=== PATIENT | male | born 1955 | race Caucasian/White ===

== ENCOUNTER 2020-08-23 07:12 | Observation (INO) ==
[2020-08-23 07:39] LABS: Basophils # 0.1 10*3/uL (0.0-0.2); Basophils % 1.1 % (0.0-0.8); Eosinophils # 0.3 10*3/uL (0.0-0.87); Eosinophils % 2.9 % (0.00-10.9); Hematocrit 42.1 VOL% (42.0-52.0); Hemoglobin 13.6 GM/DL (14.0-18.0); Immature Granulocytes % 0.4 %; Immature Granulocytes Absolute 0.04 #; Mean Corpuscular HGB Conc 32.3 GM/DL (32-36); Mean Corpuscular Volume 90.1 FL (87-102); Mean Platelet Volume 9.9 FL (9.6-12.0); Neutrophils % 62.6 % (38.7-73.9); Platelet Count 271 T/CUMM (130-400); Red Blood Count 4.67 MC/CUMM (3.8-5.5); Red Cell Distribution Width 13.6 % (9.3-17.3); White Blood Count 8.9 T/CUMM (4-12)
[2020-08-23] MEDS ORDERED: FUROSEMIDE 40 MG/4 ML VIAL IV STA (07:39)
[2020-08-23] MEDS ORDERED: FUROSEMIDE 100 MG/10 ML VIAL ONE (07:40)
[2020-08-23 08:03] LABS: Albumin 3.2 G/DL (3.4-5.0); Bilirubin,Total 0.5 MG/DL (0.2-1.0); Calcium 8.9 MG/DL (8.5-10.1); Osmolality,Calculated 285.3 MOS/KG (273-304); Total Protein 6.9 G/DL (6.4-8.3)
[2020-08-23] MEDS ORDERED: diphenhydrAMINE 50 MG/1 ML VIAL ONE (08:54)
[2020-08-23] MEDS ORDERED: methylPREDNISolone SOD SUC 125 MG/2 ML VIAL ONE (08:54)
[2020-08-23] MEDS ORDERED: ACETAMINOPHEN 325 MG TABLET PO PRN (10:07)
[2020-08-23] MEDS ORDERED: ONDANSETRON 4 MG/2 ML VIAL IV PRN (10:07)
[2020-08-23] MEDS ORDERED: GLUCAGON 1 MG VIAL IM PRN (10:07)
[2020-08-23] MEDS ORDERED: DEXTROSE 50% 25 GM/50 ML VIAL IV PRN (10:07)
[2020-08-23] MEDS ORDERED: diphenhydrAMINE 50 MG/1 ML VIAL IV STA (10:17)
[2020-08-23] MEDS ORDERED: methylPREDNISolone SOD SUC 125 MG/2 ML VIAL IV STA (10:17)
[2020-08-23] MEDS ORDERED: SODIUM CHLORIDE 0.9% 1,000 ML IV SCH (10:30)
[2020-08-23] MEDS: INSULIN LISPRO 100 UNIT/ML SUBCUT SCH ×3 (11:30→21:21)
[2020-08-23] MEDS ORDERED: AZITHROMYCIN INJ 500 MG in SODIUM CHLORIDE 0.9% 250 ML IV SCH (17:30)
[2020-08-23] MEDS: ENOXAPARIN 100 MG/ML SYRINGE SUBCUT SCH (18:37)
[2020-08-23] MEDS: methylPREDNISolone SOD SUC 40 MG/1 ML VIAL IV SCH (18:38)
[2020-08-23] MEDS: ceFAZolin 1,000 MG in SYRINGE 1 EACH IV SCH (21:22)
[2020-08-23] MEDS: DOCUSATE SODIUM 100 MG CAPSULE PO SCH (21:25)
[2020-08-24] MEDS: ceFAZolin 1,000 MG in SYRINGE 1 EACH IV SCH ×3 (04:37→20:38)
[2020-08-24] MEDS: methylPREDNISolone SOD SUC 40 MG/1 ML VIAL IV SCH ×2 (04:43→17:12)
[2020-08-24] MEDS: ENOXAPARIN 100 MG/ML SYRINGE SUBCUT SCH ×2 (04:45→17:12)
[2020-08-24] MEDS: INSULIN LISPRO 100 UNIT/ML SUBCUT SCH ×4 (08:39→20:39)
[2020-08-24] MEDS: PANTOPRAZOLE 40 MG TABLET PO SCH (08:39)
[2020-08-24] MEDS: CHOLECALCIFEROL 5,000 UNIT TABLET PO SCH (08:39)
[2020-08-24] MEDS: FAMOTIDINE 20 MG TABLET PO SCH (08:39)
[2020-08-24] MEDS: ASCORBIC ACID 500 MG TABLET PO SCH (08:39)
[2020-08-24] MEDS: LORATADINE 10 MG TABLET PO SCH (08:39)
[2020-08-24] MEDS: DOCUSATE SODIUM 100 MG CAPSULE PO SCH ×2 (08:40→20:39)
[2020-08-24] MEDS: INSULIN GLARGINE 100 UNIT/ML SUBCUT SCH (08:41)
[2020-08-24] MEDS: FUROSEMIDE 20 MG/2 ML VIAL IV SCH (08:41)
[2020-08-24 12:46] LABS: Troponin I < 0.015 NG/ML (0.00-0.045)
[2020-08-25] MEDS: ceFAZolin 1,000 MG in SYRINGE 1 EACH IV SCH ×2 (04:40→13:51)
[2020-08-25] MEDS: methylPREDNISolone SOD SUC 40 MG/1 ML VIAL IV SCH ×2 (04:45→18:47)
[2020-08-25 07:01] LABS: Basophils % 0.2 % (0.0-0.8); Hematocrit 41.5 VOL% (42.0-52.0); Immature Granulocytes % 0.5 %; Immature Granulocytes Absolute 0.06 #; Lymphocytes # 1.2 10*3/uL (1.4-4.0); Lymphocytes % 10.2 % (21.2-54.2); Mean Corpuscular HGB Conc 31.3 GM/DL (32-36); Mean Corpuscular Volume 92.6 FL (87-102); Mean Platelet Volume 10.3 FL (9.6-12.0); Monocytes % 7.4 % (1.7-12.7); Neutrophils % 81.7 % (38.7-73.9); Platelet Count 241 T/CUMM (130-400); Red Blood Count 4.48 MC/CUMM (3.8-5.5); Red Cell Distribution Width 13.7 % (9.3-17.3); White Blood Count 11.4 T/CUMM (4-12)
[2020-08-25 07:47] LABS: Calcium 8.2 MG/DL (8.5-10.1); Osmolality,Calculated 288.3 MOS/KG (273-304)
[2020-08-25] MEDS: INSULIN LISPRO 100 UNIT/ML SUBCUT SCH ×3 (09:00→18:47)
[2020-08-25] MEDS: INSULIN GLARGINE 100 UNIT/ML SUBCUT SCH (09:00)
[2020-08-25] MEDS: ASCORBIC ACID 500 MG TABLET PO SCH (09:01)
[2020-08-25] MEDS: CHOLECALCIFEROL 5,000 UNIT TABLET PO SCH (09:01)
[2020-08-25] MEDS: PANTOPRAZOLE 40 MG TABLET PO SCH (09:01)
[2020-08-25] MEDS: FAMOTIDINE 20 MG TABLET PO SCH (09:01)
[2020-08-25] MEDS: DOCUSATE SODIUM 100 MG CAPSULE PO SCH (09:01)
[2020-08-25] MEDS: LORATADINE 10 MG TABLET PO SCH (09:01)
[2020-08-25] MEDS: FUROSEMIDE 20 MG/2 ML VIAL IV SCH (09:02)
[2020-08-25 12:12] LABS: Risk Ratio 1.94; VLDL CHOLESTEROL 21.2 MG/DL
[2020-08-25] MEDS ORDERED: ENOXAPARIN 40 MG/0.4 ML SYRINGE SUBCUT SCH (17:00)
[2020-08-25 20:05] VITALS: BP 139/68
== END 2020-08-25 18:10 | disposition home or self-care (01) ==
LOC: N.ED 07:12 → N.EDINP 10:07 → INTOOBSV 10:07 → N.EDINP 14:19 → N.3E 14:22
PROVIDERS: ADMIT Family Medicine; ATTEND Family Medicine

== ENCOUNTER 2020-11-23 16:19 | Inpatient (IN) ==
[2020-11-23] MEDS ORDERED: VANCOMYCIN INJ 1,500 MG in SODIUM CHLORIDE 0.9% 250 ML IV STA (17:18)
[2020-11-23 17:33] LABS: Basophils # 0.1 10*3/uL (0.0-0.2); Basophils % 0.8 % (0.0-0.8); Eosinophils # 0.3 10*3/uL (0.0-0.87); Eosinophils % 2.7 % (0.00-10.9); Hemoglobin 13.1 GM/DL (14.0-18.0); Immature Granulocytes % 0.4 %; Immature Granulocytes Absolute 0.04 #; Lymphocytes # 2.4 10*3/uL (1.4-4.0); Lymphocytes % 26.3 % (21.2-54.2); Mean Corpuscular HGB Conc 32.8 GM/DL (32-36); Mean Corpuscular Volume 85.5 FL (87-102); Mean Platelet Volume 9.1 FL (9.6-12.0); Monocytes % 13.5 % (1.7-12.7); Neutrophils % 56.3 % (38.7-73.9); Platelet Count 306 T/CUMM (130-400); Red Blood Count 4.68 MC/CUMM (3.8-5.5); Red Cell Distribution Width 13.4 % (9.3-17.3); White Blood Count 9.1 T/CUMM (4-12)
[2020-11-23 17:52] LABS: Alanine Aminotransferase 22 U/L (16-61); Albumin 2.5 G/DL (3.4-5.0); Alkaline Phosphatase 117 U/L (45-117); Aspartate Amino Transferase 18 U/L (0-37); Blood Urea Nitrogen 17 MG/DL (7-18); Calcium 8.9 MG/DL (8.5-10.1); Carbon Dioxide 32 MMOL/L (21-32); Estimated Glom Filtration Rate 80 ML/MIN; Glucose 119 MG/DL (74-106); Osmolality,Calculated 279.5 MOS/KG (273-304); Potassium 3.9 MMOL/L (3.5-5.1); Sodium 139 MMOL/L (136-145); Total Protein 7.4 G/DL (6.4-8.2)
[2020-11-23] MEDS ORDERED: VANCOMYCIN INJ 1,500 MG in SODIUM CHLORIDE 0.9% 500 ML IV STA (17:56)
[2020-11-23] MEDS ORDERED: PIPERACILLIN/TAZOBACTAM 3,375 MG in SODIUM CHLORIDE 0.9% 100 ML IV STA (18:38)
[2020-11-23] MEDS ORDERED: DEXTROSE 50% 25 GM/50 ML VIAL IV PRN (20:58)
[2020-11-23] MEDS ORDERED: GLUCAGON 1 MG VIAL IM PRN (20:58)
[2020-11-23] MEDS ORDERED: ONDANSETRON 4 MG/2 ML VIAL IV PRN (20:58)
[2020-11-23] MEDS ORDERED: HYDROmorphone 2 MG/1 ML VIAL IV PRN (20:58)
[2020-11-23] MEDS ORDERED: APIXABAN 2.5 MG TABLET PO SCH (21:00)
[2020-11-23] MEDS: DOCUSATE SODIUM 100 MG CAPSULE PO SCH (22:38)
[2020-11-23] MEDS: PIPERACILLIN/TAZOBACTAM 3,375 MG in SODIUM CHLORIDE 0.9% 100 ML IV SCH (22:38)
[2020-11-23] MEDS: SODIUM CHLORIDE 0.9% 1,000 ML IV SCH (22:39)
[2020-11-24] MEDS: INSULIN REGULAR 100 UNIT/ML SUBCUT SCH ×5 (01:10→23:48)
[2020-11-24] MEDS: PIPERACILLIN/TAZOBACTAM 3,375 MG in SODIUM CHLORIDE 0.9% 100 ML IV SCH ×4 (04:41→21:36)
[2020-11-24 05:28] LABS: Basophils # 0.1 10*3/uL (0.0-0.2); Basophils % 1.2 % (0.0-0.8); Eosinophils # 0.3 10*3/uL (0.0-0.87); Eosinophils % 3.9 % (0.00-10.9); Hematocrit 35.1 VOL% (42.0-52.0); Hemoglobin 11.6 GM/DL (14.0-18.0); Immature Granulocytes % 0.4 %; Immature Granulocytes Absolute 0.03 #; Lymphocytes % 28.3 % (21.2-54.2); Mean Corpuscular Volume 84.8 FL (87-102); Mean Platelet Volume 9.6 FL (9.6-12.0); Monocytes % 15.7 % (1.7-12.7); Neutrophils % 50.5 % (38.7-73.9); Platelet Count 289 T/CUMM (130-400); Red Blood Count 4.14 MC/CUMM (3.8-5.5); Red Cell Distribution Width 13.5 % (9.3-17.3)
[2020-11-24 05:36] LABS: Bilirubin,Total 0.9 MG/DL (0.2-1.0); Calcium 8.1 MG/DL (8.5-10.1); Osmolality,Calculated 276.7 MOS/KG (273-304); Potassium 3.4 MMOL/L (3.5-5.1); Total Protein 6.2 G/DL (6.4-8.2)
[2020-11-24 05:57] LABS: Eosinophils 3 % (0-10); Hypochromasia 1+; Lymphocytes 23 % (20-55); Microcytosis 1+; Platelet Estimate Adequate; Segmented Neutrophils 58 % (50-85); Total Cells Counted 100
[2020-11-24] MEDS: VANCOMYCIN INJ 1,500 MG in SODIUM CHLORIDE 0.9% 500 ML IV SCH ×3 (06:35→17:07)
[2020-11-24] MEDS ORDERED: POTASSIUM CHLORIDE RIDER 10 MEQ in PREMIX 1 EACH IV ONE (07:11)
[2020-11-24] MEDS: SODIUM CHLORIDE 0.9% 1,000 ML IV SCH ×4 (07:16→16:55)
[2020-11-24] MEDS: MULTIVITAMIN (CENTRUM) TABLET PO SCH (08:53)
[2020-11-24] MEDS: FUROSEMIDE 20 MG TABLET PO SCH (08:53)
[2020-11-24] MEDS: PANTOPRAZOLE 40 MG TABLET PO SCH (08:53)
[2020-11-24] MEDS: LORATADINE 10 MG TABLET PO SCH (08:53)
[2020-11-24] MEDS: DOCUSATE SODIUM 100 MG CAPSULE PO SCH ×2 (08:53→21:36)
[2020-11-24] MEDS: INSULIN GLARGINE 100 UNIT/ML SUBCUT SCH (08:54)
[2020-11-24] MEDS: ACETAMINOPHEN 325 MG TABLET PO PRN (21:36)
[2020-11-25] MEDS: PIPERACILLIN/TAZOBACTAM 3,375 MG in SODIUM CHLORIDE 0.9% 100 ML IV SCH ×3 (04:44→20:39)
[2020-11-25] MEDS: INSULIN REGULAR 100 UNIT/ML SUBCUT SCH ×3 (07:02→17:36)
[2020-11-25] MEDS: SODIUM CHLORIDE 0.9% 1,000 ML IV SCH ×2 (07:23→13:42)
[2020-11-25] MEDS: VANCOMYCIN INJ 1,500 MG in SODIUM CHLORIDE 0.9% 500 ML IV SCH ×2 (08:59→20:36)
[2020-11-25] MEDS: INSULIN GLARGINE 100 UNIT/ML SUBCUT SCH (10:16)
[2020-11-25] MEDS: FUROSEMIDE 20 MG TABLET PO SCH (10:16)
[2020-11-25] MEDS: MULTIVITAMIN (CENTRUM) TABLET PO SCH (10:16)
[2020-11-25] MEDS: DOCUSATE SODIUM 100 MG CAPSULE PO SCH ×2 (10:16→20:36)
[2020-11-25] MEDS: PANTOPRAZOLE 40 MG TABLET PO SCH (10:16)
[2020-11-25] MEDS: LORATADINE 10 MG TABLET PO SCH (10:16)
[2020-11-25] MEDS ORDERED: BUPIVACAINE MPF 0.25% 30 ML VIAL ONE (10:44)
[2020-11-25] MEDS ORDERED: LIDOCAINE 1% 20 ML VIAL ONE (10:44)
[2020-11-25] MEDS ORDERED: fentaNYL 100 MCG/2 ML VIAL ONE (11:15)
[2020-11-25] MEDS ORDERED: MIDAZOLAM 2 MG/2 ML VIAL ONE (11:15)
[2020-11-25] MEDS: ACETAMINOPHEN 325 MG TABLET PO PRN (17:27)
[2020-11-25] MEDS: LOSARTAN 25 MG TABLET PO SCH (20:36)
[2020-11-26] MEDS: INSULIN REGULAR 100 UNIT/ML SUBCUT SCH ×5 (00:35→23:12)
[2020-11-26] MEDS: PIPERACILLIN/TAZOBACTAM 3,375 MG in SODIUM CHLORIDE 0.9% 100 ML IV SCH ×3 (04:27→21:11)
[2020-11-26] MEDS: INSULIN GLARGINE 100 UNIT/ML SUBCUT SCH (08:26)
[2020-11-26] MEDS: DOCUSATE SODIUM 100 MG CAPSULE PO SCH ×2 (08:27→20:16)
[2020-11-26] MEDS: LOSARTAN 25 MG TABLET PO SCH (08:27)
[2020-11-26] MEDS: LORATADINE 10 MG TABLET PO SCH (08:27)
[2020-11-26] MEDS: MULTIVITAMIN (CENTRUM) TABLET PO SCH (08:27)
[2020-11-26] MEDS: PANTOPRAZOLE 40 MG TABLET PO SCH (08:27)
[2020-11-26] MEDS: FUROSEMIDE 20 MG TABLET PO SCH (08:27)
[2020-11-26] MEDS: VANCOMYCIN INJ 1,500 MG in SODIUM CHLORIDE 0.9% 500 ML IV SCH ×2 (08:28→21:16)
[2020-11-26] MEDS: ENOXAPARIN 30 MG/0.3 ML SYRINGE SUBCUT SCH (10:41)
[2020-11-26] MEDS: ACETAMINOPHEN 325 MG TABLET PO PRN ×2 (15:09→21:09)
[2020-11-26] MEDS ORDERED: DIPHTHERIA/TETANUS ADULT VACCINE 0.5 ML SYRINGE IM ONE (17:00)
[2020-11-27] MEDS ORDERED: VANCOMYCIN INJ 1,500 MG in SODIUM CHLORIDE 0.9% 500 ML IV SCH (04:30)
[2020-11-27] MEDS: SODIUM CHLORIDE 0.9% 1,000 ML IV SCH (05:32)
[2020-11-27] MEDS: PIPERACILLIN/TAZOBACTAM 3,375 MG in SODIUM CHLORIDE 0.9% 100 ML IV SCH (05:33)
[2020-11-27] MEDS: INSULIN REGULAR 100 UNIT/ML SUBCUT SCH ×3 (05:41→17:23)
[2020-11-27 06:00] LABS: Basophils # 0.1 10*3/uL (0.0-0.2); Eosinophils # 0.3 10*3/uL (0.0-0.87); Eosinophils % 3.8 % (0.00-10.9); Hematocrit 37.4 VOL% (42.0-52.0); Hemoglobin 12.4 GM/DL (14.0-18.0); Immature Granulocytes % 0.5 %; Immature Granulocytes Absolute 0.04 #; Lymphocytes # 2.3 10*3/uL (1.4-4.0); Lymphocytes % 31.8 % (21.2-54.2); Mean Corpuscular HGB Conc 33.2 GM/DL (32-36); Mean Corpuscular Volume 85.8 FL (87-102); Mean Platelet Volume 9.7 FL (9.6-12.0); Monocytes % 11.5 % (1.7-12.7); Neutrophils % 51.4 % (38.7-73.9); Platelet Count 289 T/CUMM (130-400); Red Blood Count 4.36 MC/CUMM (3.8-5.5); Red Cell Distribution Width 13.5 % (9.3-17.3); White Blood Count 7.3 T/CUMM (4-12)
[2020-11-27 06:30] LABS: Calcium 8.4 MG/DL (8.5-10.1); Osmolality,Calculated 279.3 MOS/KG (273-304)
[2020-11-27] MEDS: ENOXAPARIN 30 MG/0.3 ML SYRINGE SUBCUT SCH (09:08)
[2020-11-27] MEDS: INSULIN GLARGINE 100 UNIT/ML SUBCUT SCH (09:09)
[2020-11-27] MEDS: PANTOPRAZOLE 40 MG TABLET PO SCH (09:09)
[2020-11-27] MEDS: MULTIVITAMIN (CENTRUM) TABLET PO SCH (09:09)
[2020-11-27] MEDS: DOCUSATE SODIUM 100 MG CAPSULE PO SCH ×2 (09:09→21:28)
[2020-11-27] MEDS: LOSARTAN 25 MG TABLET PO SCH (09:09)
[2020-11-27] MEDS: FUROSEMIDE 20 MG TABLET PO SCH (09:10)
[2020-11-27] MEDS: LORATADINE 10 MG TABLET PO SCH (09:10)
[2020-11-27] MEDS: CIPROFLOXACIN 500 MG TABLET PO SCH ×2 (12:45→21:20)
[2020-11-28] MEDS: INSULIN REGULAR 100 UNIT/ML SUBCUT SCH ×3 (01:39→11:40)
[2020-11-28] MEDS: PANTOPRAZOLE 40 MG TABLET PO SCH (08:30)
[2020-11-28] MEDS: LORATADINE 10 MG TABLET PO SCH (08:30)
[2020-11-28] MEDS: MULTIVITAMIN (CENTRUM) TABLET PO SCH (08:30)
[2020-11-28] MEDS: DOCUSATE SODIUM 100 MG CAPSULE PO SCH (08:30)
[2020-11-28] MEDS: LOSARTAN 25 MG TABLET PO SCH (08:30)
[2020-11-28] MEDS: CIPROFLOXACIN 500 MG TABLET PO SCH (08:30)
[2020-11-28] MEDS: FUROSEMIDE 20 MG TABLET PO SCH (08:30)
[2020-11-28] MEDS: ENOXAPARIN 30 MG/0.3 ML SYRINGE SUBCUT SCH (08:31)
[2020-11-28] MEDS: INSULIN GLARGINE 100 UNIT/ML SUBCUT SCH (08:31)
[2020-11-28 13:00] VITALS: BP 152/71
[2020-11-28] MEDS: ACETAMINOPHEN 325 MG TABLET PO PRN (15:14)
== END 2020-11-28 17:55 | disposition home or self-care (01) | DRG 264 ==
LOC: N.EDINP 16:19 → N.ED 16:19 → N.5E 20:18
PROVIDERS: ADMIT Family Medicine; ATTEND Family Medicine

== ENCOUNTER 2022-08-22 07:59 | Inpatient (IN) ==
[~2022-08-22 07:59] MED LIST: LACTATED RINGERS 1,000 ML IV SCH; VANCOMYCIN INJ 1,000 MG in SODIUM CHLORIDE 0.9% 250 ML IV ONE
[2022-08-22 08:23] LABS: Basophils # 0.1 10*3/uL (0.0-0.2); Basophils % 1.1 % (0.0-0.8); Eosinophils # 0.1 10*3/uL (0.0-0.87); Eosinophils % 0.7 % (0.00-10.9); Hematocrit 35.4 VOL% (42.0-52.0); Hemoglobin 10.8 GM/DL (14.0-18.0); Immature Granulocytes % 0.5 %; Immature Granulocytes Absolute 0.04 #; Lymphocytes # 0.9 10*3/uL (1.4-4.0); Lymphocytes % 12.2 % (21.2-54.2); Mean Corpuscular HGB Conc 30.5 GM/DL (32-36); Mean Corpuscular Volume 83.1 FL (87-102); Mean Platelet Volume 8.7 FL (9.6-12.0); Monocytes # 0.8 10*3/uL (0.11-0.8); Monocytes % 10.2 % (1.7-12.7); Neutrophils % 75.3 % (38.7-73.9); Platelet Count 430 T/CUMM (130-400); Red Blood Count 4.26 MC/CUMM (3.8-5.5); Red Cell Distribution Width 15.8 % (9.3-17.3); White Blood Count 7.6 T/CUMM (4-12)
[2022-08-22 08:39] LABS: Calcium 8.8 MG/DL (8.5-10.1); Osmolality,Calculated 275.1 MOS/KG (273-304); Potassium 3.3 MMOL/L (3.5-5.1)
[2022-08-22] MEDS ORDERED: DIAZEPAM 5 MG TABLET PO ONE (08:53)
[2022-08-22] MEDS ORDERED: GABAPENTIN 400 MG CAPSULE PO ONE (08:53)
[2022-08-22] MEDS ORDERED: ACETAMINOPHEN 500 MG TABLET PO ONE (08:53)
[2022-08-22] MEDS ORDERED: FAMOTIDINE 20 MG TABLET PO ONE (08:53)
[2022-08-22] MEDS ORDERED: BUPIVACAINE MPF 0.25% 10 ML VIAL ONE (08:54)
[2022-08-22] MEDS ORDERED: LIDOCAINE 1% 5 ML VIAL ONE (08:54)
[2022-08-22] MEDS ORDERED: ACETAMINOPHEN 500 MG TABLET ONE (08:57)
[2022-08-22] MEDS ORDERED: FAMOTIDINE 20 MG TABLET ONE (08:57)
[2022-08-22] MEDS ORDERED: propofoL 200 MG/20 ML VIAL IV ONE (09:11)
[2022-08-22] MEDS ORDERED: LIDOCAINE 2% 5 ML VIAL ONE (09:11)
[2022-08-22] MEDS ORDERED: MIDAZOLAM 2 MG/2 ML VIAL ONE (09:12)
[2022-08-22] MEDS ORDERED: fentaNYL 100 MCG/2 ML VIAL ONE (09:12)
[2022-08-22] MEDS ORDERED: KETAMINE 500 MG/10 ML VIAL ONE (09:58)
[2022-08-22] MEDS ORDERED: DEXTROSE 10% 250 ML BAG IV PRN (10:51)
[2022-08-22] MEDS ORDERED: MORPHINE 2 MG/1 ML SYRINGE IV PRN (10:51)
[2022-08-22] MEDS ORDERED: GLUCAGON 1 MG VIAL IM PRN (10:51)
[2022-08-22] MEDS: PIPERACILLIN/TAZOBACTAM 3,375 MG in SODIUM CHLORIDE 0.9% 100 ML IV SCH ×2 (14:55→21:45)
[2022-08-22] MEDS: DORZOLAMIDE/TIMOLOL OPH SOLN 10 ML BOTTLE BOTH EYES SCH (21:44)
[2022-08-22] MEDS: LORATADINE 10 MG TABLET PO SCH (21:44)
[2022-08-22] MEDS: VANCOMYCIN INJ 1,500 MG in SODIUM CHLORIDE 0.9% 500 ML IV SCH (21:44)
[2022-08-22] MEDS: INSULIN REGULAR 100 UNIT/ML SUBCUT SCH (21:55)
[2022-08-23] MEDS ORDERED: ENOXAPARIN 40 MG/0.4 ML SYRINGE SUBCUT SCH (05:00)
[2022-08-23] MEDS: PIPERACILLIN/TAZOBACTAM 3,375 MG in SODIUM CHLORIDE 0.9% 100 ML IV SCH ×3 (05:28→21:13)
[2022-08-23 05:50] LABS: Basophils # 0.1 10*3/uL (0.0-0.2); Basophils % 1.3 % (0.0-0.8); Eosinophils # 0.3 10*3/uL (0.0-0.87); Eosinophils % 4.6 % (0.00-10.9); Hematocrit 28.8 VOL% (42.0-52.0); Hemoglobin 8.8 GM/DL (14.0-18.0); Immature Granulocytes % 0.6 %; Immature Granulocytes Absolute 0.04 #; Lymphocytes # 1.9 10*3/uL (1.4-4.0); Lymphocytes % 28.2 % (21.2-54.2); Mean Corpuscular HGB Conc 30.6 GM/DL (32-36); Mean Platelet Volume 9.3 FL (9.6-12.0); Monocytes # 1.5 10*3/uL (0.11-0.8); Monocytes % 22.1 % (1.7-12.7); Neutrophils % 43.2 % (38.7-73.9); Platelet Count 340 T/CUMM (130-400); Red Blood Count 3.43 MC/CUMM (3.8-5.5); Red Cell Distribution Width 15.9 % (9.3-17.3); White Blood Count 6.7 T/CUMM (4-12)
[2022-08-23 06:16] LABS: Eosinophils 5 % (0-10); Lymphocytes 25 % (20-55); Platelet Estimate Adequate; Total Cells Counted 100
[2022-08-23 06:17] LABS: Calcium 8.5 MG/DL (8.5-10.1); Osmolality,Calculated 277.8 MOS/KG (273-304); Potassium 3.6 MMOL/L (3.5-5.1)
[2022-08-23 06:17] LABS: Hypochromia 1+; Microcytosis 1+
[2022-08-23] MEDS: INSULIN REGULAR 100 UNIT/ML SUBCUT SCH ×4 (07:30→21:23)
[2022-08-23] MEDS: metOLazone 5 MG TABLET PO SCH (08:42)
[2022-08-23] MEDS: SERTRALINE 25 MG TABLET PO SCH (08:42)
[2022-08-23] MEDS: FUROSEMIDE 20 MG TABLET PO SCH (08:42)
[2022-08-23] MEDS: prednisoLONE ACETATE 1% OPH SUSP 5 ML BOTTLE BOTH EYES SCH (08:43)
[2022-08-23] MEDS: DORZOLAMIDE/TIMOLOL OPH SOLN 10 ML BOTTLE BOTH EYES SCH ×2 (08:43→21:12)
[2022-08-23] MEDS: VANCOMYCIN INJ 1,500 MG in SODIUM CHLORIDE 0.9% 500 ML IV SCH ×2 (11:47→21:12)
[2022-08-23] MEDS ORDERED: VANCOMYCIN INJ 1,250 MG in SODIUM CHLORIDE 0.9% 250 ML IV SCH (12:00)
[2022-08-23] MEDS: LORATADINE 10 MG TABLET PO SCH (21:13)
[2022-08-24 05:14] LABS: Basophils # 0.1 10*3/uL (0.0-0.2); Basophils % 1.1 % (0.0-0.8); Eosinophils # 0.7 10*3/uL (0.0-0.87); Hematocrit 31.6 VOL% (42.0-52.0); Hemoglobin 9.7 GM/DL (14.0-18.0); Immature Granulocytes % 0.6 %; Immature Granulocytes Absolute 0.04 #; Lymphocytes # 1.9 10*3/uL (1.4-4.0); Lymphocytes % 26.4 % (21.2-54.2); Mean Corpuscular HGB Conc 30.7 GM/DL (32-36); Mean Corpuscular Volume 83.8 FL (87-102); Mean Platelet Volume 9.3 FL (9.6-12.0); Monocytes # 1.3 10*3/uL (0.11-0.8); Monocytes % 18.4 % (1.7-12.7); Neutrophils % 43.5 % (38.7-73.9); Platelet Count 364 T/CUMM (130-400); Red Blood Count 3.77 MC/CUMM (3.8-5.5); Red Cell Distribution Width 15.8 % (9.3-17.3); White Blood Count 7.1 T/CUMM (4-12)
[2022-08-24] MEDS: PIPERACILLIN/TAZOBACTAM 3,375 MG in SODIUM CHLORIDE 0.9% 100 ML IV SCH ×3 (05:30→21:01)
[2022-08-24 05:32] LABS: Calcium 8.5 MG/DL (8.5-10.1); Potassium 3.8 MMOL/L (3.5-5.1)
[2022-08-24 05:48] LABS: Eosinophils 11 % (0-10); Lymphocytes 32 % (20-55); Platelet Estimate Adequate; Total Cells Counted 100
[2022-08-24 05:49] LABS: Hypochromia Slight; Microcytosis Slight
[2022-08-24] MEDS ORDERED: FAMOTIDINE 20 MG TABLET PO ONE (06:00)
[2022-08-24] MEDS: INSULIN REGULAR 100 UNIT/ML SUBCUT SCH ×4 (07:58→21:00)
[2022-08-24] MEDS ORDERED: ACETAMINOPHEN 325 MG TABLET PO PRN (09:38)
[2022-08-24] MEDS: DORZOLAMIDE/TIMOLOL OPH SOLN 10 ML BOTTLE BOTH EYES SCH ×2 (09:55→21:01)
[2022-08-24] MEDS: prednisoLONE ACETATE 1% OPH SUSP 5 ML BOTTLE BOTH EYES SCH (09:56)
[2022-08-24] MEDS: FUROSEMIDE 20 MG TABLET PO SCH (10:02)
[2022-08-24] MEDS: SERTRALINE 25 MG TABLET PO SCH (10:02)
[2022-08-24] MEDS: metOLazone 5 MG TABLET PO SCH (10:02)
[2022-08-24] MEDS ORDERED: propofoL 200 MG/20 ML VIAL IV ONE (10:39)
[2022-08-24] MEDS ORDERED: fentaNYL 100 MCG/2 ML VIAL ONE (10:39)
[2022-08-24] MEDS ORDERED: MIDAZOLAM 2 MG/2 ML VIAL ONE (10:40)
[2022-08-24] MEDS ORDERED: KETAMINE 500 MG/10 ML VIAL ONE (10:40)
[2022-08-24] MEDS ORDERED: BUPIVACAINE MPF 0.25% 10 ML VIAL ONE (10:58)
[2022-08-24] MEDS ORDERED: LIDOCAINE 1% 5 ML VIAL ONE (10:58)
[2022-08-24] MEDS ORDERED: LACTATED RINGERS 1,000 ML IV SCH (11:00)
[2022-08-24] MEDS ORDERED: LIDOCAINE 2% 5 ML VIAL ONE (11:11)
[2022-08-24] MEDS: VANCOMYCIN INJ 1,500 MG in SODIUM CHLORIDE 0.9% 500 ML IV SCH (11:45)
[2022-08-24] MEDS ORDERED: GLUCAGON 1 MG VIAL IM PRN (12:12)
[2022-08-24] MEDS ORDERED: DEXTROSE 50% 25 GM/50 ML VIAL IV PRN (12:12)
[2022-08-24] MEDS: LORATADINE 10 MG TABLET PO SCH (21:00)
[2022-08-24] MEDS: DOCUSATE SODIUM 100 MG CAPSULE PO SCH (21:00)
[2022-08-25] MEDS: PIPERACILLIN/TAZOBACTAM 3,375 MG in SODIUM CHLORIDE 0.9% 100 ML IV SCH (05:33)
[2022-08-25] MEDS: INSULIN REGULAR 100 UNIT/ML SUBCUT SCH ×2 (09:03→12:03)
[2022-08-25] MEDS: DOCUSATE SODIUM 100 MG CAPSULE PO SCH (09:04)
[2022-08-25] MEDS: SERTRALINE 25 MG TABLET PO SCH (09:04)
[2022-08-25] MEDS: FUROSEMIDE 20 MG TABLET PO SCH (09:04)
[2022-08-25] MEDS: metOLazone 5 MG TABLET PO SCH (09:04)
[2022-08-25] MEDS: DORZOLAMIDE/TIMOLOL OPH SOLN 10 ML BOTTLE BOTH EYES SCH (09:05)
[2022-08-25] MEDS: prednisoLONE ACETATE 1% OPH SUSP 5 ML BOTTLE BOTH EYES SCH (09:05)
[2022-08-25 12:12] VITALS: BP 132/57
[2022-08-25] MEDS ORDERED: CIPROFLOXACIN 500 MG TABLET PO SCH (21:00)
== END 2022-08-25 13:12 | disposition home health service (06) | DRG 629 ==
LOC: N.OR 07:59 → N.SDSINP 08:03 → N.3E 14:24
PROVIDERS: ADMIT Surgery; ATTEND Surgery